=== PATIENT | male | born 1975 | race Caucasian/White ===

== ENCOUNTER 2021-07-08 09:24 | Emergency (ER) | payer BC, SELFPAY ==
--- NOTE | ~2021-07-08 | CT_ITS ---
EXAMINATION: CT abdomen pelvis w con DATE: 07/08/2021 10:15 INDICATION: Left lower quadrant pain. TECHNIQUE: Computed tomography (CT) of the abdomen and pelvis was performed with 100 cc Omnipaque 350 intravenous contrast. The dose-length product was 1486.69 mGy-cm. Automated exposure control and ite rative reconstruction technique were employed. COMPARISON: None. FINDINGS: Lung bases are unremarkable. Heart size normal. No significant pleural or pericardial effus ion. Fatty infiltration of the liver. Gallbladder is present. The spleen, pancreas, adrenal glands and kid neys are unremarkable. No hydronephrosis. There is acute uncomplicated sigmoid diverticulitis. No obs truction. No evidence for perforation or abscess. No free air or free fluid. Mild lower thoracic and lumbar spondylosis. No significant vascular abnormality. No lymphadenopathy. Inguinal lymph nodes are not enlarged, likely reactive. IMPRESSION: 1. Acute uncomplicated sigmoid diverticulitis. Reviewed, dictated and finalized at location A.
[2021-07-08 09:28] VITALS: BP 135/81; PULSE 76; RESP 18; TEMP 36.5; O2SAT 99
--- NOTE | 2021-07-08 09:39 | ED.ABDPAIN ---
HPI - Abdominal Pain General Chief Complaint: Abdominal Pain Stated Complaint: abd pain Time Seen by Provider: 07/08/21 09:34 Source: patient History of Present Illness HPI narrative: Patient presents with lower abdominal pain. Symptoms present over the past week or so and not resolving. Patient only thought symptoms were gas but then not resolved he wanted come to the ER for evaluation. Pain is crampy primarily in his lower abdomen constant, no clear aggravating or alleviating symptoms, no radiation. Reports diarrhea mild nausea but denies any vomiting. Reports subjective fevers at home. Denies prior abdominal surgeries. Denies any blood or bile or melena. Denies known sick contacts denies recent antibiotics denies recent camping trips or travels outside the area Related Data Allergies Allergy/AdvReac Type Severity Reaction Status Date / Time No Known Allergies Allergy Verified 07/08/21 09:34 Review of Systems Review of Systems: CONSTITUTIONAL: Patient were subjective fevers this morning EYES: Denies visual changes, redness, or discharge. ENT: Denies rhinorrhea, congestion, sore throat, or otalgia. CARDIOVASCULAR: Denies chest pain, palpitations, or edema. RESPIRATORY: Denies cough or dyspnea. GASTROINTESTINAL: Patient ports abdominal pain nausea diarrhea GENITOURINARY: Denies dysuria or hematuria. SKIN: Denies rash or itching. MUSCULOSKELETAL: Denies back pain, joint pain, or myalgia. NEUROLOGIC: Denies headache, numbness, dizziness, or weakness. PSYCHIATRIC: Denies anxiety or depression. All systems reviewed & are unremarkable except as noted in HPI and below PMFSH Social History Social History (Updated 07/08/21 @ 09:41 by Baljeet Mccabe MD) Smoking status: Never smoker Alcohol intake: current Exam Narrative: GENERAL: Well-appearing, well-nourished, and in no acute distress. HEAD: Normocephalic, atraumatic. EYES: PERRLA and EOMI. ENT: Nares clear, no rhinorrhea or epistaxis. Mucous membranes moist. NECK: Supple. No masses. No JVD ABDOMEN: Moderate diffuse lower abdominal pain most prominent in the left lower quadrant soft, nondistendedsounds. EXTREMITIES: Normal range of motion. No edema. SKIN: Warm, dry, no rash. NEURO: No focal deficits. Alert and oriented x3. PSYCH: Normal mood and affect. Course Reevaluation(s) Reevaluation #1: Patient resting comfortably work-up reviewed with patient. Patient comes with outpatient plan. Date: 07/08/21 Time: 10:36 Vital Signs Vital signs: Vital Signs Temperature 36.5 C 07/08/21 09:28 Pulse Rate 76 07/08/21 09:28 Respiratory Rate 18 07/08/21 09:28 Blood Pressure 135/81 07/08/21 09:28 Pulse Oximetry 99 07/08/21 09:28 Temperature 36.5 C 07/08/21 09:28 Pulse Rate 78 07/08/21 10:56 Respiratory Rate 18 07/08/21 10:56 Blood Pressure 138/70 07/08/21 10:56 Pulse Oximetry 100 07/08/21 10:56 MDM - Abdominal Pain MDM Narrative Medical decision making narrative: H&P as above, vss, pt looks clinically well, exam with lower abdominal pain, labs clinically unremarkable, img concerning for uncomplicated diverticulitis, additional labs/img considered, symptomatic relief available as needed, on reevaluation pt continues to looks clinically well. Suspect diverticulitis, dns perforation, abscess, appendicitis, severe sepsis, severe dehydration. plan to tx/monitor as op w/ pcm f/u findings/plan discussed with pt, pt agree/comfortable with plan, return precautions given Lab Data Result diagrams: 07/08/21 09:36 07/08/21 09:36 Labs: Lab Results 07/08/21 07/08/21 Range/Units 09:36 09:36 WBC 7.8 (4.5-10.0) K/mm3 RBC 4.84 (4.6-6.20) M/mm3 Hgb 15.5 (14.0-18.0) g/dL Hct 46.1 (42.0-52.0) % MCV 95.2 (80-100) fl MCH 32.0 (26-34) pg MCHC 33.6 (32-36) g/dl RDW 12.1 (11.5-14.5) % Plt Count 268 (150-375) k/mm3 MPV 9.0 (7.4-10.4) fl Immature Gran % (Auto) 0.1 (0-0.5) %
[2021-07-08 09:41] LABS: Basophils Absolute Auto 0.1 K/mm3 (0.0-0.1); Basophils Percent Auto 0.9 % (0.2-1.2); Eosinophils Absolute Auto 0.2 K/mm3 (0-0.3); Eosinophils Percent Auto 2.7 % (0-4.4); Hematocrit 46.1 % (42.0-52.0); Hemoglobin 15.5 g/dL (14.0-18.0); Immature Granulocyte Absolute 0.01 K/mm3 (0.00-0.031); Immature Granulocyte Percent A 0.1 % (0-0.5); Lymphocytes Absolute Auto 2.13 K/mm3 (0.9-3.2); Lymphocytes Percent Auto 27.3 % (18.3-44.2); Mean Corpuscular HGB Conc 33.6 g/dl (32-36); Mean Corpuscular Volume 95.2 fl (80-100); Monocytes Absolute Auto 0.6 K/mm3 (0.1-0.6); Monocytes Percent Auto 7.6 % (2.6-8.5); Neutrophils Absolute Auto 4.8 K/mm3 (1.3-6.7); Neutrophils Percent Auto 61.4 % (45.5-73.1); Platelet Count Result 268 k/mm3 (150-375); Red Blood Count 4.84 M/mm3 (4.6-6.20); Red Cell Distribution Width 12.1 % (11.5-14.5); White Blood Count 7.8 K/mm3 (4.5-10.0)
[2021-07-08] MEDS: SODIUM CHLORIDE 0.9% IV 1,000 ML 999 ML IV CONT (09:42)
[2021-07-08] MEDS: ONDANSETRON INJ 4 MG/2 ML VIAL IV PUSH (09:42)
[2021-07-08 09:59] LABS: Alanine Aminotransferase 30 U/L (4-50); Albumin Level 4.7 g/dL (3.5-5.1); Alkaline Phosphatase 65 U/L (38-126); Anion Gap 7 mmol/L (8-16); Aspartate Amino Transferase 37 U/L (17-59); Bilirubin,Total 1.2 mg/dL (0.2-1.3); Blood Urea Nitrogen 13 mg/dL (9-20); Calcium 9.8 mg/dL (8.4-10.2); Carbon Dioxide 33 mmol/L (22-30); Chloride 100 mmol/L (98-107); Estimated CRCL calculation 132 ml/min; Estimated Glomerular Filt Rate > 60; Glucose 96 mg/dL (65-110); Lipase 40 U/L (23-300); Potassium 4.5 mmol/L (3.4-5.0); Sodium 140 mmol/L (137-145)
[2021-07-08 10:56] VITALS: BP 138/70; PULSE 78; RESP 18; O2SAT 100
== END 2021-07-08 10:57 | disposition home or self-care (01) ==
PROVIDERS: Emergency Provider Emergency Medicine
DX: K57.32 Diverticulitis of large intestine without perforation or abscess without bleeding (principal)
CPT/HCPCS: 36415; 74177; 80053; 83690; 85025; 96361; 96374; 99284; J2405; J7030; Q9967

== ENCOUNTER 2021-08-07 15:43 | Emergency (ER) | payer OTHER, BC, SELFPAY ==
--- NOTE | ~2021-08-07 | XR_ITS ---
EXAMINATION: XR chest 2V DATE: 08/07/2021 16:28 INDICATION: Right shoulder pain. TECHNIQUE: Frontal and lateral views of the chest were obtained. COMPARISON: CT abdomen and pelvis 07/08/2021 FINDINGS: The lung volumes are small. No pneumonia, pleural effusion, or pneumothorax. There is mild chronic anterior wedging of multiple vertebral bodies. IMPRESSION: 1. No acute cardiopulmonary disease. Reviewed, dictated and finalized at location A. OL TRAFFIC SUPERVISOR
--- NOTE | ~2021-08-07 | XR_ITS ---
EXAMINATION: XR shoulder RT min 2V DATE: 08/07/2021 16:28 INDICATION: Right shoulder pain. Trauma. TECHNIQUE: 4 views of right shoulder were obtained. COMPARISON: None. FINDINGS: Bone alignment is normal. No fracture. Joint spaces are well maintained. IMPRESSION: 1. Normal right shoulder. Reviewed, dictated and finalized at location A. NCIAL DIRECTOR IMPRESSION: 1. Normal right shoulder.
--- NOTE | ~2021-08-07 | CT_ITS ---
EXAMINATION: CT cervical spine wo con DATE: 08/07/2021 16:34 INDICATION: Trauma with steel door falling on to the right supraclavicular region of the neck. TECHNIQUE: Computed tomography (CT) of the cervical spine was performed without intravenous contrast. Automated exposure control and iterative reconstruction technique were employed. The dose-length pro duct was 456.24 mGy-cm. COMPARISON: None FINDINGS: Alignment is normal. Vertebral body heights are normal. No fracture. Mild disc height loss at C5-C6. Ossification along the posterior longitudinal ligament at C5 and C6 resulting in mild central canal s tenosis at both levels. There appears to be a small disc protrusion at C2-C3 and disc bulges at C5-C6 and C6-C7 also resulting in mild central canal stenosis at these levels. Multilevel mild bilateral c ervical facet osteoarthritis without associated significant neural foraminal stenosis. Moderate bilat eral facet osteoarthritis at T2-T3 and T3-T4 resulting in mild to moderate bilateral neural foraminal stenosis at T2-T3 and mild neural foraminal stenosis at T3-T4. Cervical soft tissues are unremarkabl e. Visualized portions of the mastoid air cells and middle ear cavities, the trachea and apices of param ngs are clear. IMPRESSION: 1. Mild cervical spondylosis. No acute osseous abnormality. Reviewed, dictated and finalized at location A. ICIAN SURGEON
[2021-08-07 15:51] VITALS: BP 136/92; PULSE 77; RESP 16; TEMP 36.4; O2SAT 97
--- NOTE | 2021-08-07 16:13 | ED.UPPEXIN ---
HPI - Extremity Injury (Upper) General Chief Complaint: Extremity Injury, Upper Stated Complaint: right shoulder injury Time Seen by Provider: 08/07/21 16:04 Source: patient and RN notes reviewed Mode of arrival: ambulatory Limitations: no limitations History of Present Illness HPI narrative: Patient is telling me that a steel door 4 feet above the right shoulder got loose and landed on the right supraclavicular area, pushed the patient away. Patient fall to the floor, denies loss of consciousness, denies other injuries. Currently complaining of right shoulder pain. And intermittent numbness of the right hand. Patient denies any fever, chills, nausea, vomiting, headache, chest pain, back pain or shortness of breath. Patient also denies any neck pain. Patient received ibuprofen prior to arrival Related Data Allergies Allergy/AdvReac Type Severity Reaction Status Date / Time No Known Allergies Allergy Verified 07/08/21 09:34 Review of Systems Review of Systems: CONSTITUTIONAL: Denies fever, chills, or sweats. EYES: Denies visual changes, redness, or discharge. ENT: Denies rhinorrhea, congestion, sore throat, or otalgia. CARDIOVASCULAR: Denies chest pain, palpitations, or edema. RESPIRATORY: Denies cough or dyspnea. GASTROINTESTINAL: Denies abdominal pain, nausea, vomiting, or diarrhea. GENITOURINARY: Denies dysuria or hematuria. SKIN: Denies rash or itching. MUSCULOSKELETAL: Denies back pain, joint pain, or myalgia. NEUROLOGIC: Denies headache, numbness, or weakness. PSYCHIATRIC: Denies anxiety or depression. PMFSH Social History Social History Smoking status: Never smoker Alcohol intake: current Exam Narrative: General appearance: Well-developed, well-nourished Skin: Normal color Head: Normocephalic, nontraumatic Eyes: Clear conjunctiva ENT: Oropharynx normal, ears normal, nose normal Neck: Supple, nontender Chest and respiratory: Airway patent, no respiratory distress, no accessory muscle use Heart: Regular rate/rhythm Abdomen: Soft, nontender, no organomegaly, quiet bowel sounds Vascular: Normal peripheral pulses, normal capillary refill. Musculoskeletal: Diffuse tenderness right supraclavicular area, no bruises, no swelling, no deformity. 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, no gross motor deficit Course Course Emergency Course: Stable Vital Signs Vital signs: Vital Signs Temperature 36.4 C 08/07/21 15:51 Pulse Rate 77 08/07/21 15:51 Respiratory Rate 16 08/07/21 15:51 Blood Pressure 136/92 H 08/07/21 15:51 Pulse Oximetry 97 08/07/21 15:51 Temperature 36.4 C 08/07/21 15:51 Pulse Rate 77 08/07/21 15:51 Respiratory Rate 16 08/07/21 15:51 Blood Pressure 136/92 H 08/07/21 15:51 Pulse Oximetry 97 08/07/21 15:51 MDM - Extremity Injury (Upper) MDM Narrative Medical decision making narrative: Right supraclavicular contusion Imaging Data Radiologist's impression: Impressions Chest X-Ray 08/07/21 16:31 IMPRESSION: 1. No acute cardiopulmonary disease. Shoulder X-Ray 08/07/21 16:31 IMPRESSION: 1. Normal right shoulder. Cervical Spine CT 08/07/21 16:40 IMPRESSION: 1. Mild cervical spondylosis. No acute osseous abnormality. Critical Care Time Critical Care Time Critical Care Time: No Discharge Plan Discharge Clinical Impression: Contusion of right shoulder Qualifiers: Encounter type: initial encounter Qualified Code(s): S40.011A - Contusion of right shoulder, initial encounter Patient Disposition: Home, Self-Care Condition: Stable Instructions: Antibiotic Form, Contusi
== END 2021-08-07 17:22 | disposition home or self-care (01) ==
PROVIDERS: Emergency Provider Emergency Medicine
DX: S40.011A Contusion of right shoulder, initial encounter (principal); M47.812 Spondylosis without myelopathy or radiculopathy, cervical region; W20.8XXA Other cause of strike by thrown, projected or falling object, initial encounter
CPT/HCPCS: 71046; 72125; 73030; 99284; A4565

== ENCOUNTER 2022-04-30 20:42 | Emergency (ER) | payer BC, SELFPAY ==
[2022-04-30] VITALS (16 sets, daily range): BP systolic 105–117; BP diastolic 59–79; PULSE 62–87; RESP 11–27; TEMP 36.6; O2SAT 92–100
--- NOTE | ~2022-04-30 | CT_ITS ---
EXAMINATION: CT brain wo con DATE: 04/30/2022 21:35 INDICATION: syncope . TECHNIQUE: Computed tomography (CT) of the head was performed without intravenous contrast. The mA wa s adjusted according to patient size. Iterative reconstruction technique was employed. The dose-lengt h product was 681.00 mGy-cm. COMPARISON: None FINDINGS: No acute intracranial hemorrhage or extra-axial fluid collection. No hydrocephalus, mass, or herniation. No acute ischemic infarct. Unremarkable dural venous sinus attenuation. No acute osseous abnormality. Mucosal thickening in the ethmoid air cells and sphenoid sinuses, otherwise the aerated spaces are cl ear. Partially empty sella. IMPRESSION: No acute intracranial process. Reviewed, dictated and finalized at location K.
--- NOTE | ~2022-04-30 | CT_ITS ---
EXAMINATION: CTA chest PE abdomen pel DATE: 04/30/2022 21:43 INDICATION: current dvt, sob, syncope, vomiting, confusion. TECHNIQUE: Computed tomography angiography (CTA) of the chest was performed with 100 mL Omnipaque-350 intravenous contrast timed to evaluate the pulmonary arteries, followed by portal venous phase imagi ng of the abdomen and pelvis. Coronal maximum intensity projection 3D-reconstructions were created by the technologist. The dose-length product (DLP) was 2484.54 mGy-cm. Automated exposure control and i terative reconstruction technique were employed. COMPARISON: None. FINDINGS: CHEST: Lung parenchyma and airways: Dependent atelectasis. Pleura: Unremarkable. Thoracic inlet, axillae and chest wall: Unremarkable. Thoracic aorta: Normal. Mediastinum: Small hiatal hernia. Heart and pericardium: Cardiomegaly. No pericardial effusion. Coronary artery calcifications: Absent. Thoracic bones: No acute osseous finding. Pulmonary arteries: Study quality: Adequate. No pulmonary emboli detected. ABDOMEN/PELVIS: Liver: Normal. Biliary/Gallbladder: Gallbladder is normal. No bile duct dilation. Pancreas: No mass or duct dilation. Spleen: Normal. Adrenals:No mass. Kidneys: No mass, stone, or hydronephrosis. GI tract: No small or large bowel dilation. Normal appendix. Mesentery/Peritoneum: No ascites, mass, or free air. Retroperitoneum: No mass. Pelvis: Pelvic organs are within normal limits. Soft Tissues: Soft tissues and body wall unremarkable. Abdominopelvic bones: No acute osseous finding. IMPRESSION: No CT evidence of acute pulmonary embolus. No acute finding in the chest, abdomen, or pelvis. Reviewed, dictated and finalized at location K. IMPRESSION: No CT evidence of acute pulmonary embolus. No acute finding in the chest, abdom en, or pelvis.
--- NOTE | 2022-04-30 20:54 | ECG_ITS ---
Measurements Intervals [place] Rate: 64 P: 25 LA: 171 QRS: -15 QRSD: 99 T: 3 QT: 436 QTc: 451 Interpretive Statements SINUS RHYTHM LOW QRS VOLTAGE IN PRECORDIAL LEADS [QRS DEFLECTION < 1.0 mV IN CHEST LEADS] MODERATE VOLTAGE CRITERIA FOR LVH, CONSIDER NORMAL VARIANT [MEETS CRITERIA IN ONE OF: R(aVL), S(V1), R(V5), R(V5/V6)+S(V1)] NO PREVIOUS ECG AVAILABLE FOR COMPARISON Electronically Signed On 05-01-2022 16:27:28 CDT by Mine Caro M.D.
--- NOTE | 2022-04-30 21:02 | ED.GENADULT ---
HPI - General Adult General Chief complaint: Shortness of Breath/Dyspnea Stated complaint: SOB +ETOH Time Seen by Provider: 04/30/22 20:48 History of Present Illness HPI narrative: 46-year-old male presented to the emergency department for evaluation after having a possible syncopal episode. Patient states that when he got off work he had some alcohol. Patient was initially emphatic about only having 1 drink. Patient's came in and checked on him in the bathroom and found him laying face down and emesis. Patient was hyperventilating when EMS arrived. Upon arrival patient states he does have some shortness of breath but is saturating well on room air. Patient does have a prior history of DVT a few months ago and is just now completing his Eliquis. Related Data Home Medications Medication Instructions Recorded Confirmed apixaban 5 mg tablet (Eliquis) 5 mg PO BID 04/30/22 Allergies Allergy/AdvReac Type Severity Reaction Status Date / Time No Known Allergies Allergy Verified 04/30/22 20:59 Review of Systems Review of Systems: CONSTITUTIONAL: Denies fever, chills, or sweats. EYES: Denies visual changes, redness, or discharge. ENT: Denies rhinorrhea, congestion, sore throat, or otalgia. CARDIOVASCULAR: Denies chest pain, palpitations, or edema. RESPIRATORY: Denies cough or dyspnea. GASTROINTESTINAL: Nausea and vomiting GENITOURINARY: Denies dysuria or hematuria. SKIN: Denies rash or itching. MUSCULOSKELETAL: Denies back pain, joint pain, or myalgia. NEUROLOGIC: Syncopal episode [facility] Social History Social History Smoking status: Never smoker Alcohol intake: current Exam Narrative: APPEARANCE: Appears intoxicated HEAD: normocephalic, atraumatic. EYES: PERRLA/EOMI, conjunctivae clear. NOSE: Normal no drainage EARS:TMS clear with good light reflex. THROAT: Pharynx clear, no exudate. NECK: Supple. No adenopathy, no masses. RESPIRATORY: Airway patent, respirations nonlabored. Clear to auscultation bilaterally, no rales, rhonchi, wheezing. CARDIOVASCULAR: Regular rate and rhythm without murmurs rubs or gallops. ABDOMINAL: Soft, nontender, nondistended, normal bowel sounds MUSCULOSKELETAL: Moves all extremities. Strength/ROM intact, No edema, No calf tenderness. NEURO: Alert. Cranial nerves II through XII intact. Grossly intact SKIN: Warm, dry. Normal Color Course Course Emergency Course: Patient does admit to having issues with alcoholism. Patient states his father was an alcoholic. Patient and are updated on the results of the work-up. CTA chest abdomen pelvis was within normal limits. Patient had a normal head CT. Patient was able to ambulate at his baseline. Patient was encouraged to have close follow-up with his primary care physician. Patient was provided information for rehabilitation. Patient was also advised to have close follow-up with a counselor. Vital Signs Vital signs: Vital Signs Temperature 97.8 F 04/30/22 20:44 Pulse Rate 62 04/30/22 20:44 Respiratory Rate 15 04/30/22 20:44 Blood Pressure 112/79 04/30/22 20:44 Pulse Oximetry 97 04/30/22 20:44 Oxygen Delivery Room Air 04/30/22 20:44 Temperature 97.8 F 04/30/22 20:44 Pulse Rate 69 04/30/22 23:11 Respiratory Rate 19 04/30/22 23:11 Blood Pressure 117/73 04/30/22 23:11 Pulse Oximetry 100 04/30/22 23:11 Oxygen Delivery Room Air 04/30/22 20:55 Medical Decision Making Vital Signs Vital Signs: Vital Signs Temperature 97.8 F 04/30/22 20:44 Pulse Rate 62 04/30/22 20:44 Respiratory Rate 15 04/30/22 20:44 Blood Pressure 112/79 04/30/22 20:44 Pulse Oximetry 97 04/30/22 20:44 Oxygen Delivery Room Air 04/30/22 20:44 Temperature 97.8 F 04/30/22 20:44 Pulse Rate 69 04/30/22 23:11 Respiratory Rate 19 04/30/22 23:11 Blood Pressure 117/73 04/30/22 23:11 Pulse Oximetry 100 04/30/22 23:11 Oxygen Deliver
[2022-04-30 21:04] LABS: Basophils Percent Auto 0.4 % (0.2-1.2); Eosinophils Percent Auto 0.1 % (0-4.4); Hematocrit 44.1 % (42.0-52.0); Hemoglobin 14.7 g/dL (14.0-18.0); Immature Granulocyte Absolute 0.03 K/mm3 (0.00-0.031); Immature Granulocyte Percent A 0.4 % (0-0.5); Lymphocytes Absolute Auto 1.17 K/mm3 (0.9-3.2); Lymphocytes Percent Auto 17.5 % (18.3-44.2); Mean Corpuscular HGB Conc 33.3 g/dl (32-36); Mean Corpuscular Volume 95.9 fl (80-100); Mean Platelet Volume 8.7 fl (7.4-10.4); Monocytes Absolute Auto 0.2 K/mm3 (0.1-0.6); Monocytes Percent Auto 3.3 % (2.6-8.5); Neutrophils Absolute Auto 5.2 K/mm3 (1.3-6.7); Neutrophils Percent Auto 78.3 % (45.5-73.1); Platelet Count Result 287 k/mm3 (150-375); Red Cell Distribution Width 12.5 % (11.5-14.5); White Blood Count 6.7 K/mm3 (4.5-10.0)
[2022-04-30] MEDS: SODIUM CHLORIDE 0.9% IV 1,000 ML 999 ML IV CONT (21:10)
[2022-04-30 21:15] LABS: Alanine Aminotransferase 34 U/L (6-50); Albumin Level 4.6 g/dL (3.5-5.1); Alkaline Phosphatase 72 U/L (38-126); Anion Gap 17 mmol/L (8-16); Aspartate Amino Transferase 41 U/L (17-59); Bilirubin,Total 0.3 mg/dL (0.2-1.3); Blood Urea Nitrogen 10 mg/dL (9-20); Calcium 8.6 mg/dL (8.4-10.2); Carbon Dioxide 21 mmol/L (22-30); Chloride 104 mmol/L (98-107); Estimated CRCL calculation 118 ml/min; Estimated Glomerular Filt Rate > 60; Glucose 123 mg/dL (65-110); Potassium 4.1 mmol/L (3.4-5.0); Sodium 142 mmol/L (137-145)
[2022-04-30 21:21] LABS: Ethanol 239 mg/dL (<10)
--- NOTE | 2022-04-30 21:24 | PC.NURSE ---
Patient off unit to radiology
[2022-04-30 22:28] LABS: Amphetamine Screen Urine Negative (Negative); Barbiturate Screen Urine Negative (Negative); Benzodiazepines Screen Urine Negative (Negative); Cannabinoid Screen Urine Negative (Negative); Cocaine Screen Urine Negative (Negative); Methadone Screen Urine Negative (Negative); Opiate Screen Urine Negative (Negative); Phencyclidine Screen Urine Negative (Negative)
== END 2022-04-30 23:19 | disposition home or self-care (01) ==
PROVIDERS: Emergency Provider Emergency Medicine
DX: F10.129 Alcohol abuse with intoxication, unspecified (principal); Y90.7 Blood alcohol level of 200-239 mg/100 ml; Z86.718 Personal history of other venous thrombosis and embolism; Z79.01 Long term (current) use of anticoagulants
CPT/HCPCS: 36415; 70450; 71275; 74177; 80053; 80307; 85025; 93005; 96360; 96361; 99284; J7030; Q9967

== ENCOUNTER 2022-05-09 09:12 | Outpatient (CLI) | payer BC, SELFPAY ==
[2022-05-09 18:38] LABS: Cholesterol 158 mg/dL (0-200); HDL Direct 36 mg/dL; Triglycerides 81 mg/dL (<150)
[2022-05-09 18:49] LABS: LDL Cholesterol Direct 95 mg/dL
[2022-05-09 18:53] LABS: Hemoglobin A1C 5.1 % (<5.7)
== END 2022-05-09 09:13 | disposition home or self-care (01) ==
LOC: ANHGOSHLAB 09:13
PROVIDERS: PCP Family Medicine; Visit Provider Family Medicine
DX: Z13.220 Encounter for screening for lipoid disorders (principal); E66.01 Morbid (severe) obesity due to excess calories
CPT/HCPCS: 36415; 80061; 83036

== ENCOUNTER 2022-09-12 11:33 | Outpatient (CLI) | payer BC, SELFPAY ==
--- NOTE | ~2022-09-12 | US_ITS ---
EXAMINATION:US venous doppler LE RT INDICATION:Right lower extremity pain TECHNIQUE: Multiple grayscale, color flow and Doppler images of the right lower extremity deep venous systems were obtained and reviewed. COMPARISON:No prior studies for comparison. FINDINGS: The common femoral, superficial femoral and popliteal veins demonstrate normal respiratory variation, augmentation and compressibility. Color flow is also seen within the posterior tibial, pe roneal, greater saphenous and profunda veins. There is thrombosis of the lesser saphenous vein. IMPRESSION: 1: No lower extremity deep venous thrombosis. 2: Superficial venous thrombosis of the lesser saphenous vein. Reviewed, dictated and finalized at location A. ILE ARTIST
== END 2022-09-12 11:34 | disposition home or self-care (01) ==
PROVIDERS: PCP Family Medicine; Visit Provider Nurse Practitioner
DX: I82.811 Embolism and thrombosis of superficial veins of right lower extremity (principal); R09.89 Other specified symptoms and signs involving the circulatory and respiratory systems
CPT/HCPCS: 93971

== ENCOUNTER → 2023-11-04 16:12 | Outpatient (CLI) | payer BC, SELFPAY ==
--- NOTE | ~2023-11-04 | XR_ITS ---
EXAMINATION: XR knee RT min 4V DATE: 11/04/2023 16:39 INDICATION: Nontraumatic anterior right knee pain TECHNIQUE: Weight bearing anteroposterior and Capps, sunrise, and flexed lateral views of the rig ht knee were obtained COMPARISON: None. FINDINGS: Alignment is normal. No fracture. Tricompartmental osteoarthritis at the right knee with small nancy nal osteophytes in all 3 compartments and mild joint space narrowing at the medial compartment. No sosa int effusion. Small loose body versus heterotopic ossicle projecting over the soft tissues lateral to the lateral trochlea. Soft tissues are unremarkable. IMPRESSION: 1. Mild medial compartment predominant tricompartmental osteoarthritis at the right knee. No joint ef fusion or acute osseous abnormality. Reviewed, dictated and finalized at location A. HT CREW ORDNANCEMAN IMPRESSION: 1. Mild medial compartment predominant tricompartmental osteoarthritis at the r ight knee. No joint effusion or acute osseous abnormality.
== END ==
PROVIDERS: PCP Family Medicine; Visit Provider Family Medicine
DX: M17.11 Unilateral primary osteoarthritis, right knee (principal)
CPT/HCPCS: 73564

== ENCOUNTER 2024-05-04 16:06 | Outpatient (CLI) | payer BC, SELFPAY ==
--- NOTE | ~2024-05-04 | US_ITS ---
EXAMINATION: US venous doppler [facility] DATE: 05/04/2024 16:52 INDICATION: R60.0 - Localized edema . TECHNIQUE: Grayscale images without and with compression and Doppler images of the bilateral lower ex tremity veins were obtained. COMPARISON: 09/12/2022 FINDINGS: The right common femoral vein, profunda (deep) femoral vein, femoral vein, popliteal vein, peroneal v ein, posterior tibial veins, gastrocnemius vein, and greater saphenous vein are patent. Chronic throm bosis in the right lesser saphenous vein. The left common femoral vein, profunda (deep) femoral vein, femoral vein, popliteal vein, peroneal v ein, posterior tibial veins, gastrocnemius vein, and greater saphenous vein are patent. Superficial v aricosities noted in the left calf with reflux. IMPRESSION: No evidence of deep venous thrombosis in either lower extremity. Chronic superficial venous thrombosi s of the right lesser saphenous vein. Superficial left calf varicosities with reflux. Reviewed, dictated and finalized at location K. IMPRESSION: No evidence of deep venous thrombosis in either lower extremity. Chronic superf icial venous thrombosis of the right lesser saphenous vein. Superficial left ca lf varicosities with reflux.
== END 2024-05-04 16:07 ==
PROVIDERS: PCP Family Medicine; Visit Provider Family Medicine
DX: I82.811 Embolism and thrombosis of superficial veins of right lower extremity (principal); I83.12 Varicose veins of left lower extremity with inflammation
CPT/HCPCS: 93970

== ENCOUNTER 2024-12-23 06:53 | Outpatient (CLI) | payer BC, SELFPAY ==
--- NOTE | ~2024-12-23 | XR_ITS ---
XR knee RT min 4V 12/23/2024 07:11 Indication: Knee pain Procedure: 4 views right knee Comparison: 11/04/2023 Findings: There is mild tricompartment osteoarthritis. No significant joint effusion. No foreign bodi es. Impression: 1: Mild tricompartment osteoarthritis. Reviewed, dictated and finalized at location A. Impression: 1: Mild tricompartment osteoarthritis.
--- NOTE | ~2024-12-23 | XR_ITS ---
XR knee LT min 4V 12/23/2024 07:11 Indication: Left knee pain Procedure: 4 views left knee Comparison: 02/05/2024 Findings: Moderate tricompartment osteoarthritis. No acute fracture, subluxation or dislocation. Ther e is an osteochondral defect at the level of the tibial spines. No joint effusion. Impression: 1: Moderate tricompartment osteoarthritis. 2: Chronic osteochondral defect proximal tibia. Reviewed, dictated and finalized at location A. Impression: 1: Moderate tricompartment osteoarthritis. 2: Chronic osteochondral defect proximal tibia.
== END 2024-12-23 06:54 | disposition home or self-care (01) ==
LOC: MICIMG 06:55
PROVIDERS: PCP Nurse Practitioner; Visit Provider Physician Assistant Surgical
DX: M17.0 Bilateral primary osteoarthritis of knee (principal)
CPT/HCPCS: 73564